=== PATIENT | female | born 1980 | race Caucasian/White ===

== ENCOUNTER 2018-08-07 13:22 | Emergency (ER) | payer OTHER ==
[2018-08-07] MEDS: IBUPROFEN 800 MG TAB PO (14:00)
[2018-08-07] MEDS: ONDANSETRON 4 MG ORAL DISINTEGRATING TAB (Q0162 PER 1MG) PO (14:03)
[2018-08-07 14:50] LABS: BILIRUBIN, URINE MANUAL OBSCURED (NEGATIVE); BLOOD URINE MANUAL RFX POSITIVE (NEGATIVE); GLUCOSE, URINE (UA) MANUAL OBSCURED mg/dL (NEGATIVE); KETONE, URINE MANUAL OBSCURED mg/dL (NEGATIVE); MICROSCOPIC INDICATED? RFX YES (NO); NITRITE, URINE MANUAL RFX OBSCURED (NEGATIVE); PROTEIN, URINE MANUAL REFLEX OBSCURED mg/dL (NEGATIVE); SP GRAVITY,URINE MANUAL REFLEX > 1.035 (1.002-1.035); UROBILINOGEN, URINE MANUAL OBSCURED mg/dl (NORMAL)
[2018-08-07 14:56] LABS: BACTERIA, URINE SMALL AMOUNT; HYALINE CAST, URINE NONE SEEN /lpf (0-1); MICROSCOPIC EXAM UNSPUN; RBC, URINE TNTC /hpf (0-3); SQUAMOUS EPITHELIAL CELL URINE MOD AMOUNT /hpf (SMALL AMT)
== END 2018-08-07 17:41 | disposition home or self-care (01) ==
LOC: M ED 13:22
DX: N94.6 Dysmenorrhea, unspecified (principal); D25.9 Leiomyoma of uterus, unspecified; E28.2 Polycystic ovarian syndrome; J45.909 Unspecified asthma, uncomplicated
CPT/HCPCS: Q0162

== ENCOUNTER 2019-07-12 19:38 | Emergency (ER) | payer OTHER ==
[~2019-07-12] VITALS: Ht 170.2 cm; Wt 61.4 kg
[2019-07-12 19:38] VITALS: BP 138/65
[~2019-07-12 19:38] MED LIST: IBUP80TA PO; VENTAER INH
[2019-07-12] MEDS ORDERED: IBUPROFEN 600 MG TAB PO ONE (20:00)
[2019-07-12] MEDS ORDERED: IBUP-1022 PO (20:17)
--- NOTE | 2019-07-13 08:27 | REP ---
Left tibia-fibula four views : There is no fracture or dislocation. Mineralization and joint spaces are normal. There are no calcifications or foreign bodies. Impression: Negative left tibia-fibula . Electronically Signed by Chip Gracia MD 07/13/2019 08:19 A
== END 2019-07-12 20:32 | disposition home or self-care (01) ==
LOC: M ED 19:38
DX: S80.11XA Contusion of right lower leg, initial encounter (principal); S80.12XA Contusion of left lower leg, initial encounter; V43.62XA Car passenger injured in collision with other type car in traffic accident, initial encounter; Y92.410 Unspecified street and highway as the place of occurrence of the external cause; F17.200 Nicotine dependence, unspecified, uncomplicated

== ENCOUNTER 2019-09-04 10:12 | Emergency (ER) | payer OTHER ==
[~2019-09-04] VITALS: Ht 170.2 cm; Wt 59.5 kg
[~2019-09-04 10:12] MED LIST changes: +IBUP-1022 PO
[2019-09-04] MEDS ORDERED: BREO1INH (10:20)
[2019-09-04] MEDS ORDERED: IPRATROPIUM 0.5MG/ALBUTEROL 2.5MG INH SOL UD 3ML (DUONEB)(J7620) NEB STA (11:16)
[2019-09-04] MEDS ORDERED: methylPREDNISolone INJ 125 MG/2 ML VIAL (J2930) IV ONE (11:30)
[2019-09-04 11:49] LABS: BASO # 0.1 10^3/uL (0.0-0.2); BASO % 0.4 % (0.0-1.0); EOS # 0.3 10^3/uL (0.0-0.5); EOS % 2.2 % (0.0-3.0); HEMATOCRIT 41.8 % (36.0-47.0); HEMOGLOBIN 14.2 g/dl (12.0-15.5); LYMPH # 1.7 10^3/uL (1.5-5.0); LYMPH % 12.6 % (24.0-44.0); MEAN CORPUSCULAR VOLUME 94.1 fl (80.0-96.0); MONO % 7.3 % (0.0-5.0); NEUTROPHILS # 10.3 10^3/uL (1.5-8.5); NEUTROPHILS % 77.1 % (36.0-66.0); PLATELET COUNT, AUTOMATED 284 10^3/uL (150-450); RED BLOOD COUNT 4.44 10^6/uL (4.00-5.40); WHITE BLOOD COUNT 13.3 10^3/uL (4.0-10.0)
[2019-09-04 12:21] LABS: BLOOD UREA NITROGEN 13 MG/DL (7-18); CALCIUM LEVEL 9.3 MG/DL (8.5-10.1); CARBON DIOXIDE LEVEL 23 MEQ/L (21-32); CHLORIDE LEVEL 108 MEQ/L (98-107); CK-MB VALUE MASS 1.3 NG/ML (<3.6); CPK CREATINE PHOSPHOKINASE 97 U/L (26-192); CREATININE FOR GFR 0.74 MG/DL (0.55-1.30); GLOMERULAR FILTRATION RATE > 60.0 (>60); GLUCOSE, FASTING 90 MG/DL (70-100); MB/CK RELATIVE INDEX 1.34 (< OR =4); SODIUM LEVEL 138 MEQ/L (136-145); TROPONIN I < 0.02 NG/ML (< 0.10)
[2019-09-04] MEDS ORDERED: IPRATROPIUM 0.5MG/ALBUTEROL 2.5MG INH SOL UD 3ML (DUONEB)(J7620) NEB ONE (13:30)
[2019-09-04] MEDS ORDERED: VENTAER INH (13:44)
[2019-09-04] MEDS ORDERED: BREO1INH PO (13:44)
[2019-09-04] MEDS ORDERED: PRED20TA PO (13:51)
[2019-09-04] MEDS ORDERED: AZIT-12 PO (13:51)
[2019-09-04 14:04] VITALS: BP 112/58
--- NOTE | 2019-09-05 14:40 | ECGEPIP ---
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
--- NOTE | 2019-09-16 09:37 | REP ---
Chest x-ray: Two views. Repeat dictation. History: Dyspnea and cough. Preliminary report is provided at the time of examination by Dr. Silva. Comparison chest x-ray June 29, 2013. Findings: The lungs are hyperinflated but free of infiltrate. Pleural angles are sharp. Heart size is normal. Pulmonary vasculature is not increased. Nipple silhouettes project over the lung cabezas bilaterally unchanged. No bony abnormality. Impression: Mild hyperinflation. Otherwise no acute disease. Electronically Signed by Cornelio Richardson MD 09/16/2019 01:07 P
== END 2019-09-04 14:23 | disposition home or self-care (01) ==
LOC: M ED 10:12
DX: J45.998 Other asthma (principal); B34.9 Viral infection, unspecified; Z79.899 Other long term (current) drug therapy; F17.210 Nicotine dependence, cigarettes, uncomplicated
CPT/HCPCS: 71046; 80048; 82550; 82553; 84702; 85025; 85379; 93005; 94640; 94760; 96374; 99284; J2930

== ENCOUNTER 2021-02-06 17:30 | Emergency (ER) | payer OTHER ==
[~2021-02-06] VITALS: Ht 170.2 cm; Wt 59.5 kg
[~2021-02-06 17:30] MED LIST changes: +AZIT-12 PO; +BREO1INH; +BREO1INH PO; +PRED20TA PO
[2021-02-06] MEDS ORDERED: predniSONE 20 MG TAB PO ONE (18:15)
[2021-02-06] MEDS ORDERED: COMBIVENT RESPIMAT 100-20MCG INHALER 4GM INH ONE (18:15)
[2021-02-06] MEDS: ALBUTEROL SULFATE 2.5 MG/0.5 ML INH NEB SOLN INH PRN ×2 (19:46→19:48)
--- NOTE | 2021-02-06 19:51 | REP ---
INDICATION: sob/wheezing COMPARISON: 09/04/2019 TECHNIQUE: PA and lateral. FINDINGS: The mediastinum and cardiac silhouette are normal. The lung cabezas are clear and without acute consolidation, effusion, or pneumothorax. The skeletal structures are intact and normal. IMPRESSION: No acute cardiopulmonary process. <Electronically signed by Hill Silva > 02/06/21 1948
[2021-02-06 20:30] VITALS: BP 112/68
[2021-02-06] MEDS ORDERED: PRED20TA PO (20:50)
[2021-02-06] MEDS ORDERED: ALBU83IN NEB (20:50)
== END 2021-02-06 21:06 | disposition home or self-care (01) ==
LOC: M ED 17:30
DX: J45.901 Unspecified asthma with (acute) exacerbation (principal); F17.210 Nicotine dependence, cigarettes, uncomplicated; Z79.51 Long term (current) use of inhaled steroids
CPT/HCPCS: 71046; 99283; J7512

== ENCOUNTER 2021-07-25 03:09 | Inpatient (IN) | payer OTHER ==
[~2021-07-25 03:09] MED LIST changes: +ALBU83IN NEB
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
[2021-07-25] MEDS ORDERED: IPRATROPIUM 0.5MG/ALBUTEROL 2.5MG INH SOL UD 3ML (DUONEB) NEB ONE ×2 (03:15→03:30)
[2021-07-25] MEDS ORDERED: IPRATROPIUM 0.5MG/ALBUTEROL 2.5MG INH SOL UD 3ML (DUONEB) As Ordered ONE (03:16)
[2021-07-25] MEDS ORDERED: MAGNESIUM SULFATE 1GM/100ML D5W BAG (10MG/ML) As Ordered ONE (03:20)
[2021-07-25] MEDS ORDERED: ALBUTEROL SULFATE 2.5 MG/0.5 ML INH NEB SOLN NEB ONE (03:30)
[2021-07-25] MEDS ORDERED: ALBUTEROL SULFATE 2.5 MG/0.5 ML INH NEB SOLN NEB SCH (03:30)
[2021-07-25] MEDS ORDERED: MAG SULF 1GM/100ML (MAG RUN) 1 GM in IV 1 EA IV ONE ×2 (03:45→04:45)
[2021-07-25 03:56] LABS: ABG HCO3 14.8 MEQ/L (22.0-26.0); ABG O2 SATURATION 98.6 % (95.0-99.0); ABG PARTIAL PRESSURE O2 165.1 mmHg (75.0-100.0); ABG STANDARD HCO3 12.1 MEQ/L (22.0-26.0); ABG TOTAL CO2 16.6 MEQ/L (22.0-29.0)
[2021-07-25 03:59] LABS: ABG pH (ARTERIAL) 7.007 UNITS (7.350-7.450)
[2021-07-25 04:00] LABS: ABG PARTIAL PRESSURE CO2 60.3 mmHg (35.0-45.0)
[2021-07-25 04:24] LABS: BLOOD UREA NITROGEN 17 MG/DL (7-18); CALCIUM LEVEL 8.8 MG/DL (8.5-10.1); CARBON DIOXIDE LEVEL 20 MEQ/L (21-32); CHLORIDE LEVEL 110 MEQ/L (98-107); CREATININE FOR GFR 1.04 MG/DL (0.55-1.30); GLOMERULAR FILTRATION RATE > 60.0 (>60); GLUCOSE, FASTING 309 MG/DL (70-100); MAGNESIUM LEVEL 3.7 MG/DL (1.8-2.4); POTASSIUM SERUM 4.6 MEQ/L (3.5-5.1); SODIUM LEVEL 144 MEQ/L (136-145)
[2021-07-25 04:25] LABS: BASO # 0.1 10^3/uL (0.0-0.2); BASO % 0.7 % (0.0-1.0); EOS # 0.6 10^3/uL (0.0-0.5); EOS % 3.9 % (0.0-3.0); HEMATOCRIT 46.9 % (36.0-47.0); HEMOGLOBIN 14.4 g/dl (12.0-15.5); LYMPH # 6.2 10^3/uL (1.5-5.0); LYMPH % 39.8 % (24.0-44.0); MEAN CORPUSCULAR HEMOGLOBIN 31.6 pg (27.0-33.0); MEAN CORPUSCULAR HGB CONC 30.7 g/dl (32.0-36.5); MEAN CORPUSCULAR VOLUME 102.9 fl (80.0-96.0); MONO % 6.6 % (2.0-8.0); NEUTROPHILS # 7.5 10^3/uL (1.5-8.5); NEUTROPHILS % 48.4 % (36.0-66.0); PLATELET COUNT, AUTOMATED 287 10^3/uL (150-450); RED BLOOD COUNT 4.56 10^6/uL (4.00-5.40); WHITE BLOOD COUNT 15.6 10^3/uL (4.0-10.0)
[2021-07-25 04:29] LABS: CK-MB VALUE MASS < 1.0 NG/ML (<3.6); CPK CREATINE PHOSPHOKINASE 97 U/L (26-192); MB/CK RELATIVE INDEX 1.03 (< OR =4); TROPONIN I < 0.02 NG/ML (< 0.10)
[2021-07-25 05:08] LABS: RSV AMPLIFICATION NEGATIVE (NEGATIVE)
[2021-07-25] MEDS ORDERED: NS 1,000 ML IV ONE ×3 (05:15→15:45)
[2021-07-25 05:44] LABS: ABG BASE EXCESS -6.3 (-2.0-2.0); ABG HCO3 19.8 MEQ/L (22.0-26.0); ABG O2 SATURATION 99.2 % (95.0-99.0); ABG PARTIAL PRESSURE CO2 41.4 mmHg (35.0-45.0); ABG PARTIAL PRESSURE O2 236.5 mmHg (75.0-100.0); ABG STANDARD HCO3 19.4 MEQ/L (22.0-26.0); ABG pH (ARTERIAL) 7.297 UNITS (7.350-7.450)
[2021-07-25] MEDS ORDERED: AZITHROMYCIN INJ 500 MG, VIAL MATE ADAPTER 1 EACH in NS 250 ML IV ONE (06:05)
[2021-07-25] MEDS ORDERED: cefTRIAXone SOD 1 GM in D5W MINI-BAG PLUS 50 ML IV ONE (06:05)
--- NOTE | 2021-07-25 06:38 | REPVR ---
PROCEDURE INFORMATION: Exam: XR Chest Exam date and time: 07/25/2021 5:42 AM Age: 41 years old Clinical indication: Shortness of breath; Additional info: Asthma exacerbation TECHNIQUE: Imaging protocol: XR of the chest. Views: 1 view. COMPARISON: CR Chest, 2 view PA, Lat 02/06/2021 7:33 PM FINDINGS: Lungs: Coarsening or underlying areas of interstitial thickening most suggested in the lower lungs. Pleural spaces: Unremarkable. No pleural effusion. No pneumothorax. Heart/Mediastinum: Unremarkable. No cardiomegaly. Bones/joints: Area of sclerosis proximal left humerus diametaphysis. Soft tissues: Summation of densities or nodular opacity right mid chest measuring approximately 1.4 cm versus external density. Other findings: Multiple overlapping external structures. IMPRESSION: 1. Interstitial coarsening/thickening most suggested in the lower lungs. 2. External density versus summation densities or margin of the lower right scapula overlies the right mid chest. Further follow-up chest is recommended. 3. Limitation by multiple overlapping external structures partially obscuring the chest. Electronically signed by: Anjali Hollins On 07/25/2021 06:38:24 AM
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
[2021-07-25] MEDS ORDERED: BUDESONIDE 0.5 MG/2 ML INHALATION SUSPENSION INH SCH (08:00)
[2021-07-25] MEDS ORDERED: ALB2.5NEB INH (08:05)
[2021-07-25] MEDS ORDERED: ADV250INH INH (08:05)
[2021-07-25] MEDS ORDERED: HOME MED LIST COMPLETE! XX SCH (08:10)
[2021-07-25] MEDS: ALBUTEROL SULFATE 2.5 MG/0.5 ML INH NEB SOLN NEB SCH ×4 (08:11→20:00)
[2021-07-25 08:24] LABS: ABG BASE EXCESS -6.7 (-2.0-2.0); ABG HCO3 18.1 MEQ/L (22.0-26.0); ABG O2 SATURATION 99.6 % (95.0-99.0); ABG PARTIAL PRESSURE CO2 34.1 mmHg (35.0-45.0); ABG PARTIAL PRESSURE O2 314.3 mmHg (75.0-100.0); ABG STANDARD HCO3 19.1 MEQ/L (22.0-26.0); ABG TOTAL CO2 19.2 MEQ/L (22.0-29.0); ABG pH (ARTERIAL) 7.343 UNITS (7.350-7.450)
[2021-07-25] MEDS: NS 1,000 ML IV SCH ×2 (09:56→22:50)
[2021-07-25] MEDS: ENOXAPARIN 40MG/0.4ML SYRINGE (J1650 PER 10MG) SC SCH (10:00)
[2021-07-25 10:33] LABS: HEMOGLOBIN A1c 5.4 %
[2021-07-25] MEDS: methylPREDNISolone 40MG 1ML VIAL IV SCH ×2 (11:53→17:59)
[2021-07-25 14:30] LABS: ABG BASE EXCESS -8.4 (-2.0-2.0); ABG HCO3 15.2 MEQ/L (22.0-26.0); ABG O2 SATURATION 91.2 % (95.0-99.0); ABG PARTIAL PRESSURE O2 60.6 mmHg (75.0-100.0); ABG STANDARD HCO3 17.6 MEQ/L (22.0-26.0); ABG TOTAL CO2 16.1 MEQ/L (22.0-29.0); ABG pH (ARTERIAL) 7.369 UNITS (7.350-7.450)
[2021-07-25] MEDS: BUDESONIDE 0.5 MG/2 ML INHALATION SUSPENSION INH SCH ×2 (15:41→20:00)
--- NOTE | 2021-07-25 16:11 | HPEPDOC ---
General Date of Admission Jul 25, 2021 at 07:37 Date of Service: Jul 25, 2021 Chief Complaint The patient is a 41-year-old female admitted with a reason for visit of Asthma Exacerbation. Source: Patient, RN/MD History of Present Illness 41-year-old female with past medical history of asthma, smoker, COPD has been sick for about a week. She initially started with nasal congestion thought it was her allergies about 4 days ago she started feeling short of breath with some cough she started using her inhalers frequently but she ran out of her albuterol inhaler, she did not have any prednisone at home, and last night she was severely short of breath so called EMS. EMS found to be saturating at 70s she was put on 6 L nasal cannula and brought to the ED on presentation to the ED she was saturating 90 in mid 80s. She was tripoding, could talk only 1 or 2 words, there was use of all accessory muscles. ABG showed pH of 7.007 PCO2 of 60 PO2 165. Chest x-ray showed coarsening of the lower lung cabezas and Summation of densities or nodular opacity right mid chest measuring approximately 1.4 cm versus external density. She was immediately started on BiPAP. 2 hours later blood gas showed improvement. In the ED she was noted to be hypotensive 90s over 50s range so was given several boluses of fluid. during my interview patient was on BiPAP she could not talk very well. She did say that she was feeling better. Still complained of shortness of breath but was better than when she came in. Complained of some cough not much phlegm production and congestion. She was admitted for acute respiratory failure with hypoxia and hypercarbia due to asthma/COPD exacerbation. Home Medications Scheduled Salmeterol/Fluticasone (Advair 250-50 Diskus) 1 Each Blst.w.dev, 1 PUFF INH BID, (Reported) Scheduled PRN Albuterol Sulfate (Ventolin Hfa) 108 Mcg/Act Aer, 2 PUFFS INH QIDP PRN for SHORTNESS OF BREATH, (Reported) Albuterol Sulfate (Albuterol Sulfate) 2.5 Mg/0.5 Ml Vial.neb, 2.5 MG INH Q4H PRN for SOB/WHEEZING, (Reported) Allergies Coded Allergies: ENVIRONMENTAL (Verified Allergy, Unknown, 06/24/08) No Known Drug Allergies (Verified Allergy, Unknown, 07/25/21) Past Medical History Medical History Asthma, Allergies, COPD Surgical History Tubal ligation Family History Significant Family History: Asthma (Brother), COPD (Father) Social History * Smoker: current smoker Alcohol: occationally Drugs: denies A-FIB/CHADSVASC A-FIB History Current/History of A-Fib/PAF?: No Review of Systems Constitutional: Denies: Chills, Fever, Night Sweats Eyes: Denies: Pain, Vision change ENT: Reports: Sinus Congestion; Denies: Head Aches, Ear Pain, Dysphagia Skin: Denies: Rash, Lesions, Breakdown Pulmonary: Reports: Dyspnea, Cough Cardiovascular: Denies: Chest Pain, Palpitations, Orthopnea Gastrointestinal: Denies: Nausea, Vomiting, Abdominal Pain, Diarrhea Genitourinary: Denies: Dysuria, Frequency, Incontinence, Retention Hematologic: Denies: Bruising, Bleeding Excessively Musculoskeletal: Reports: Back Pain; Denies: Neck Pain, Joint Pain, Muscle Pain, Spasms Physical Examination General Exam: Positive: Alert, Cooperative, Mild Distress Eye Exam: Positive: PERRLA, Conjunctiva & lids normal, EOMI; Negative: Sclera icteric ENT Exam: Positive: Atraumatic, Mucous membr. moist/pink, Pharynx Normal Neck Exam: Positive: Supple; Negative: JVD, thyromegaly Chest Exam: Positive: Rhonchi, Wheezing Heart Exam: Positive: Rate Normal, Regular Rhythm, Normal S1, Normal S2; Negative: Murmurs, Rubs Telemetry: Positive: Sinus, Tachycardia Abdomen Exam: Positive: Normal bowel sounds, Soft; Negative: Tenderness Extremity Exam: Negative: Clubbing, Cyanosis, Edema Skin Exam: Positive: Nl turgor and temperature; Negative: Breakdown, Lesion Psych Exam: Positive: Memory Intact, Oriented x 3 Vital Signs Vital Signs Date Time Temp Pulse Resp B/P (MAP) Pulse Ox O2 Delivery O2 Flow Rate FiO2 07/25/21 10:12 98/57 (71) 07/25/21 10:00 100 100 07/25/21 08:15 60 07/25/21 05:00 95.9 24 NIPPV (BIPAP/CPAP) 07/25/21 03:54 15.0 Laboratory Data Labs 24H Laboratory Tests 2 07/25/21 03:44: Immature Granulocyte % (Auto) 0.6, Neutrophils (%) (Auto) 48.4, Lymphocytes (%) (Auto) 39.8, Monocytes (%) (Auto) 6.6, Eosinophils (%) (Auto) 3.9H, Basophils (%) (Auto) 0.7, Neutrophils # (Auto) 7.5, Lymphocytes # (Auto) 6.2H, Monocytes # (Auto) 1.0H, Eosinophils # (Auto) 0.6H, Basophils # (Auto) 0.1, Nucleated Red Blood Cells % (auto) 0.0, Anion Gap 14, Glomerular Filtration Rate > 60.0, Calcium Level 8.8, Magnesium Level 3.7H, Total Creatine Kinase 97, Creatine Kinase MB < 1.0, Creatine Kinase MB Relative Index 1.03, Troponin I < 0.02 07/25/21 03:49: Blood Gas Bicarbonate Standard 12.1L, Arterial Blood pH 7.007*L, Arterial Blood Partial Pressure CO2 60.3*H, Arterial Blood Partial Pressure O2 165.1H, Arterial Blood Total CO2 16.6L, Arterial Blood HCO3 14.8L, Arterial Blood Base Excess - 17.0L, Arterial Blood Oxygen Saturation 98.6 07/25/21 03:54: Estimated Mean Plasma Glucose 108, Hemoglobin A1c 5.4 07/25/21 04:01: Coronavirus (COVID-19)(PCR) NEGATIVE, Influenza Type A (RT-PCR) NEGATIVE, Influenza Type B (RT-PCR) NEGATIVE, Respiratory Syncytial Virus (PCR) NEGATIVE 07/25/21 05:30: Blood Gas Bicarbonate Standard 19.4L, Arterial Blood pH 7.297L, Arterial Blood Partial Pressure CO2 41.4, Arterial Blood Partial Pressure O2 236.5H, Arterial Blood Total CO2 21.0L, Arterial Blood HCO3 19.8L, Arterial Blood Base Excess - 6.3L, Arterial Blood Oxygen Saturation 99.2H 07/25/21 06:26: Lactic Acid Level 2.9*H 07/25/21 08:06: Blood Gas Bicarbonate Standard 19.1L, Arterial Blood pH 7.343L, Arterial Blood Partial Pressure CO2 34.1L, Arterial Blood Partial Pressure O2 314.3H, Arterial Blood Total CO2 19.2L, Arterial Blood HCO3 18.1L, Arterial Blood Base Excess - 6.7L, Arterial Blood Oxygen Saturation 99.6H 07/25/21 10:47: Lactic Acid Followup at 4 Hours 2.5*H CBC/BMP Laboratory Tests 07/25/21 03:44 Microbiology Microbiology 07/25/21 Blood Culture, Received Pending 07/25/21 Blood Culture, Received Pending Assessment/Plan 41-year-old female with past medical history of asthma has been sick for about a week. She initially started with nasal congestion thought it was her allergies about 4 days ago she started feeling short of breath with some cough she started using her inhalers frequently but she ran out of her albuterol inhaler, she did not have any prednisone at home, and last night she was severely short of breath so called EMS. EMS found to be saturating at 70s she was put on 6 L nasal cannula and brought to the ED on presentation to the ED she was saturating 90 in mid 80s. She was tripoding, could talk only 1 or 2 words, there was use of all accessory muscles. ABG showed pH of 7.007 PCO2 of 60 PO2 165. She was immediately started on BiPAP 2 hours later blood gas showed improvement. She was admitted for acute respiratory failure with hypoxia and hypercarbia due to asthma exacerbation. Acute respiratory failure with hypoxia and hypercarbia Improved blood gas after BiPAP Continue with BiPAP with breaks for meals. Asthma/COPD exacerbation Continue on albuterol, budesonide, methylprednisone Will give ceftriaxone and azithromycin in view of SIRS with abnormal chest x-ray We will get a CT chest Hypotension Possibly due to acidosis However with elevated WBC, tachycardia, elevated lactate High possibility of underlying sepsis Cultures have been sent Patient has been started on ceftriaxone and azithromycin Patient got 2 boluses of fluids we will continue with IV fluid. Lactic acidosis This is likely due to increased work of breathing Plan / VTE VTE Prophylaxis Ordered?: Yes Dorina Pantoja MD Jul 25, 2021 13:22
--- NOTE | 2021-07-25 16:30 | REP ---
INDICATION: abnormal CXR with acute resp failure and hypotension COMPARISON: None. TECHNIQUE: Standard helical technique without intravenous contrast. FINDINGS: There is no evidence of mediastinal or hilar adenopathy. There are no pleural or pericardial effusions. The imaged upper abdomen is within normal limits. Evaluation of the lung cabezas shows biapical pleuroparenchymal scarring. Scattered bibasilar ground-glass opacities are identified. There is a 6 mm sized pleural base nodule in the right lower lobe. There is cylindrical bronchiectasis. There is right basilar posterior pleural thickening. IMPRESSION: 1. Bibasilar ground-glass opacities early fibrotic changes and or early pneumonia. 2. Cylindrical bronchiectasis. 3. Right lower lung field pleural thickening with a pleural based 6 mm size nodule. This represents a category 3 nodule for which a six-month follow-up chest CT is recommended. 4. Biapical pleuroparenchymal scarring which should also be followed in 6 months. 5. Other findings as described above. <Electronically signed by Matt Wilde > 07/25/21 2000
[2021-07-25 18:27] LABS: ABG BASE EXCESS -8.4 (-2.0-2.0); ABG HCO3 15.5 MEQ/L (22.0-26.0); ABG O2 SATURATION 96.9 % (95.0-99.0); ABG PARTIAL PRESSURE CO2 27.7 mmHg (35.0-45.0); ABG PARTIAL PRESSURE O2 87.1 mmHg (75.0-100.0); ABG STANDARD HCO3 17.8 MEQ/L (22.0-26.0); ABG TOTAL CO2 16.3 MEQ/L (22.0-29.0); ABG pH (ARTERIAL) 7.365 UNITS (7.350-7.450)
--- NOTE | 2021-07-25 19:33 | ECGEPIP ---
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
[2021-07-25] MEDS: guaiFENesin ER 600 MG TAB PO SCH (22:50)
[2021-07-25 23:03] VITALS: BP 104/75
[2021-07-26] MEDS: methylPREDNISolone 40MG 1ML VIAL IV SCH ×2 (00:43→05:52)
[2021-07-26] MEDS: ALBUTEROL SULFATE 2.5 MG/0.5 ML INH NEB SOLN NEB SCH ×5 (04:36→15:45)
[2021-07-26] MEDS ORDERED: cefTRIAXone SOD 1 GM in D5W MINI-BAG PLUS 50 ML IV SCH (06:00)
[2021-07-26 06:14] LABS: ABG BASE EXCESS -3.6 (-2.0-2.0); ABG HCO3 19.9 MEQ/L (22.0-26.0); ABG O2 SATURATION 97.1 % (95.0-99.0); ABG PARTIAL PRESSURE CO2 31.3 mmHg (35.0-45.0); ABG PARTIAL PRESSURE O2 89.3 mmHg (75.0-100.0); ABG STANDARD HCO3 21.5 MEQ/L (22.0-26.0); ABG TOTAL CO2 20.9 MEQ/L (22.0-29.0); ABG pH (ARTERIAL) 7.422 UNITS (7.350-7.450)
[2021-07-26 06:16] VITALS: BP 102/55
[2021-07-26 06:37] LABS: BASO % 0.1 % (0.0-1.0); LYMPH # 1.4 10^3/uL (1.5-5.0); LYMPH % 7.5 % (24.0-44.0); MEAN CORPUSCULAR HEMOGLOBIN 31.8 pg (27.0-33.0); MEAN CORPUSCULAR HGB CONC 33.7 g/dl (32.0-36.5); MEAN CORPUSCULAR VOLUME 94.3 fl (80.0-96.0); MONO # 0.9 10^3/uL (0.0-0.8); MONO % 4.9 % (2.0-8.0); NEUTROPHILS # 16.4 10^3/uL (1.5-8.5); PLATELET COUNT, AUTOMATED 232 10^3/uL (150-450); RED BLOOD COUNT 3.71 10^6/uL (4.00-5.40); WHITE BLOOD COUNT 18.9 10^3/uL (4.0-10.0)
[2021-07-26 06:40] LABS: HEMOGLOBIN 11.8 g/dl (12.0-15.5)
[2021-07-26] MEDS ORDERED: AZITHROMYCIN INJ 500 MG, VIAL MATE ADAPTER 1 EACH in NS 250 ML IV SCH (07:00)
[2021-07-26 07:04] LABS: BLOOD UREA NITROGEN 9 MG/DL (7-18); CALCIUM LEVEL 8.2 MG/DL (8.5-10.1); CARBON DIOXIDE LEVEL 21 MEQ/L (21-32); CHLORIDE LEVEL 113 MEQ/L (98-107); CREATININE FOR GFR 0.52 MG/DL (0.55-1.30); GLOMERULAR FILTRATION RATE > 60.0 (>60); GLUCOSE, FASTING 155 MG/DL (70-100); POTASSIUM SERUM 4.6 MEQ/L (3.5-5.1); SODIUM LEVEL 141 MEQ/L (136-145)
[2021-07-26] MEDS: BUDESONIDE 0.5 MG/2 ML INHALATION SUSPENSION INH SCH (07:18)
[2021-07-26] MEDS: guaiFENesin ER 600 MG TAB PO SCH (08:21)
[2021-07-26] MEDS: ENOXAPARIN 40MG/0.4ML SYRINGE (J1650 PER 10MG) SC SCH (08:21)
[2021-07-26] MEDS ORDERED: INFLUENZA QUADRIVALENT PF VACCINE 0.5ML SYRINGE IM ONE (11:00)
[2021-07-26 14:00] VITALS: BP 101/55
[2021-07-26] MEDS ORDERED: PRED20TA PO (15:06)
--- NOTE | 2021-07-26 18:57 | DS.PDOC ---
Discharge Summary General Date of Admission Jul 25, 2021 at 07:37 Date of Discharge 07/26/2021 Attending Physician: NADINE PEGUERO DO Discharge Summary PROCEDURES PERFORMED DURING STAY: None. ADMITTING DIAGNOSES: 1. Acute respiratory failure with hypoxia and hypercarbia. 2. Asthma/COPD exacerbation 3. Hypertension 4. Lactic acidosis DISCHARGE DIAGNOSES: 1. Acute respiratory failure with hypoxia and hypercarbia, resolved. 2. Asthma/COPD exacerbation, improved 3. Hypertension 4. Lactic acidosis, resolved 5. Leukocytosis, most likely secondary to steroid use COMPLICATIONS/CHIEF COMPLAINT: Asthma Exacerbation. HISTORY OF PRESENT ILLNESS: Patient is a 41-year-old female with a past medical history of asthma, smoking, COPD has been sick for about a week. She initially started with nasal congestion but thought it was her allergies. About 4 days ago she started feeling short of breath some cough and started using inhalers more frequently but she ran out of albuterol. She did not have any prednisone at home. She became acutely short of breath and called EMS. EMS found the patient was saturating 70s as per nasal cannula 6 L and brought to the emergency department. On presentation to the emergency department she was saturating in the 90s in the mid 80s. She was tripoding and only talking 1-2 word sentences. She is using all of her accessory muscles. ABG showed a pH of 7.007, PCO2 of 60 and a PO2 of 165. Chest x-ray showed coarsening of the lower lung cab[place] with summation of densities or nodular opacities in my right chest. She was medially started on BiPAP. 2 hours later the blood gas showed improvement. In the emergency department she was hypotensive and was given several boluses of fluid. During the interview with the admitting provider, patient was on BiPAP she cannot really talk very well. She does says she is feeling much better. Still complains shortness of breath but was better with than when she came in. Complained of some cough with no phlegm production with congestion. HOSPITAL COURSE: Patient improved throughout the evening and into the night. Patient was transitioned to p.o. prednisone and did well throughout the day. Patient initially been placed on a full equal diet but this was advanced to a full diet. Patient did not require any oxygen therapy throughout the day and was not short of breath. I went back to evaluate the patient later in the day and the patient stated that she is feeling much better and was ready to go home. The decision was made to discharge the patient home. Patient's procalcitonin was negative and the patient's chest CT showed possible pneumonia. Because the patient's procalcitonin was negative, the decision was made to stop antibiotics. Patient will be sent home with 5 days of p.o. prednisone with advised to return the emergency department if her symptoms worsen. Patient was discharged home on 07/26/2021. DISCHARGE MEDICATIONS: Please see below. ALLERGIES: Please see below. PHYSICAL EXAMINATION ON DISCHARGE: VITAL SIGNS: Please see below. General: Alert and oriented female patient who was sitting in bed when I walked in the room. Patient did not appear to be in any acute distress. HEENT: Normocephalic, atraumatic, moist mucous membranes. Neck: No lymphadenopathy or thyromegaly Cardiac: Regular rate and rhythm, no murmurs, normal S1, normal S2 Pulm: Clear to auscultation bilaterally. No wheezes, rhonchi, rales Abd: Nondistended, nontender to palpation, normal bowel sounds Ext: No edema bilateral lower extremities LABORATORY DATA: Please see below. IMAGING: Chest x-ray performed 07/25/2021 is reported to show interstitial coarsening/thickening most suggested in the lower lungs. External density versus summation densities or margin of the lower right scapula overlies the mid right chest. Further follow-up chest CT is recommended. Limitations by multiple overlapping external structures partially obstructing the chest. CT of the chest performed without contrast on 07/25/2021 was reported to show bibasilar groundglass opacities early fibrotic changes and/or early pneumonia. Cylindrical bronchiectasis. Right lower lung field pleural thickening with a pleural-based 6 mm nodule. This represents a category 3 nodule for which a 6- month follow-up CT of the chest is recommended. Biapical pleural-parenchymal scarring which should also be followed in 6 months. PROGNOSIS: Good ACTIVITY: As tolerated. DIET: Regular DISCHARGE PLAN: Discharge home DISPOSITION: 01 Home, Self-Care. DISCHARGE INSTRUCTIONS: 1. Follow-up with primary care provider within 5 to 7 days of discharge. 2. Take prednisone 40 mg daily for the next 5 days 3. Return to the emergency department symptoms worsen ITEMS TO FOLLOWUP ON ON OUTPATIENT: 1. 6-month follow-up CT scan for 6 mm nodule as described above in imaging. DISCHARGE CONDITION: Stable. TIME SPENT ON DISCHARGE: 35 minutes. Vital Signs/I&Os Vital Signs Date Time Temp Pulse Resp B/P (MAP) Pulse Ox O2 Delivery O2 Flow Rate FiO2 07/26/21 14:00 99.1 85 20 101/55 (70) 95 Room Air 07/25/21 13:12 2.0 07/25/21 08:15 60 I&O- Last 24 Hours up to 6 AM 07/26/21 06:00 Intake Total 3120 ml Output Total 0 ml Balance 3120 ml Laboratory Data Labs 24H Laboratory Tests 2 07/26/21 05:55: Blood Gas Bicarbonate Standard 21.5L, Arterial Blood pH 7.422, Arterial Blood Partial Pressure CO2 31.3L, Arterial Blood Partial Pressure O2 89.3, Arterial Blood Total CO2 20.9L, Arterial Blood HCO3 19.9L, Arterial Blood Base Excess - 3.6L, Arterial Blood Oxygen Saturation 97.1 07/26/21 06:24: Immature Granulocyte % (Auto) 0.5, Neutrophils (%) (Auto) 87.0H, Lymphocytes (%) (Auto) 7.5L, Monocytes (%) (Auto) 4.9, Eosinophils (%) (Auto) 0.0, Basophils (%) (Auto) 0.1, Neutrophils # (Auto) 16.4H, Lymphocytes # (Auto) 1.4L, Monocytes # (Auto) 0.9H, Eosinophils # (Auto) 0.0, Basophils # (Auto) 0.0, Nucleated Red Blood Cells % (auto) 0.0, Anion Gap 7L, Glomerular Filtration Rate > 60.0, Lactic Acid Level 1.0, Calcium Level 8.2L CBC/BMP Laboratory Tests 07/26/21 06:24 Microbiology Microbiology 07/25/21 Blood Culture - Preliminary, Resulted No growth after 24 hours . All specim... 07/25/21 Blood Culture - Preliminary, Resulted No growth after 24 hours . All specim... Discharge Medications Scheduled Prednisone (Prednisone) 20 Mg Tablet, 40 MG PO DAILY Salmeterol/Fluticasone (Advair 250-50 Diskus) 1 Each Blst.w.dev, 1 PUFF INH BID, (Reported) Scheduled PRN Albuterol Sulfate (Ventolin Hfa) 108 Mcg/Act Aer, 2 PUFFS INH QIDP PRN for S HORTNESS OF BREATH, (Reported) Albuterol Sulfate (Albuterol Sulfate) 2.5 Mg/0.5 Ml Vial.neb, 2.5 MG INH Q4H PRN for SOB/WHEEZING, (Reported) Allergies Coded Allergies: ENVIRONMENTAL (Verified Allergy, Unknown, 06/24/08) No Known Drug Allergies (Verified Allergy, Unknown, 07/25/21) NADINE PEGUERO DO Jul 26, 2021 18:57
[2021-07-27] MEDS ORDERED: predniSONE 20 MG TAB PO SCH (09:00)
== END 2021-07-26 18:30 | disposition home or self-care (01) | DRG 140 ==
LOC: M ED 03:09 → M ED INP 07:37 → M MS5PR 23:04
PROVIDERS: ADMIT Internal Medicine Nephrology; ATTEND Family Medicine
DX: J44.1 Chronic obstructive pulmonary disease with (acute) exacerbation (principal); J96.01 Acute respiratory failure with hypoxia; E87.2 Acidosis; I95.9 Hypotension, unspecified; J45.901 Unspecified asthma with (acute) exacerbation; J96.02 Acute respiratory failure with hypercapnia; F17.200 Nicotine dependence, unspecified, uncomplicated; Z20.822 Contact with and (suspected) exposure to COVID-19; Z79.899 Other long term (current) drug therapy

== ENCOUNTER 2021-09-19 14:32 | Emergency (ER) | payer OTHER ==
[~2021-09-19] VITALS: Ht 170.2 cm; Wt 62.6 kg
[~2021-09-19 14:32] MED LIST changes: +ADV250INH INH; +ALB2.5NEB INH
[2021-09-19] MEDS ORDERED: methylPREDNISolone 125MG 2ML VIAL IV ONE (19:30)
[2021-09-19 20:07] LABS: BASO % 0.3 % (0.0-1.0); EOS # 0.1 10^3/uL (0.0-0.5); EOS % 1.1 % (0.0-3.0); HEMATOCRIT 44.9 % (36.0-47.0); HEMOGLOBIN 15.1 g/dl (12.0-15.5); LYMPH # 1.9 10^3/uL (1.5-5.0); LYMPH % 20.3 % (24.0-44.0); MEAN CORPUSCULAR HEMOGLOBIN 31.5 pg (27.0-33.0); MEAN CORPUSCULAR HGB CONC 33.6 g/dl (32.0-36.5); MEAN CORPUSCULAR VOLUME 93.7 fl (80.0-96.0); MONO # 0.9 10^3/uL (0.0-0.8); MONO % 9.5 % (2.0-8.0); NEUTROPHILS # 6.5 10^3/uL (1.5-8.5); NEUTROPHILS % 68.6 % (36.0-66.0); PLATELET COUNT, AUTOMATED 273 10^3/uL (150-450); RED BLOOD COUNT 4.79 10^6/uL (4.00-5.40); WHITE BLOOD COUNT 9.5 10^3/uL (4.0-10.0)
[2021-09-19] MEDS: IPRATROPIUM 0.5MG/ALBUTEROL 2.5MG INH SOL UD 3ML (DUONEB) NEB PRN ×2 (20:22→20:40)
[2021-09-19 20:23] LABS: ABG BASE EXCESS -0.2 (-2.0-2.0); ABG HCO3 21.9 MEQ/L (22.0-26.0); ABG O2 SATURATION 97.7 % (95.0-99.0); ABG PARTIAL PRESSURE CO2 29.6 mmHg (35.0-45.0); ABG PARTIAL PRESSURE O2 93.1 mmHg (75.0-100.0); ABG STANDARD HCO3 24.3 MEQ/L (22.0-26.0); ABG TOTAL CO2 22.9 MEQ/L (22.0-29.0); ABG pH (ARTERIAL) 7.488 UNITS (7.350-7.450)
[2021-09-19 20:34] LABS: BLOOD UREA NITROGEN 13 MG/DL (7-18); CALCIUM LEVEL 8.9 MG/DL (8.5-10.1); CARBON DIOXIDE LEVEL 25 MEQ/L (21-32); CHLORIDE LEVEL 107 MEQ/L (98-107); CK-MB VALUE MASS 1.3 NG/ML (<3.6); CREATININE FOR GFR 0.72 MG/DL (0.55-1.30); GLOMERULAR FILTRATION RATE > 60.0 (>60); GLUCOSE, FASTING 97 MG/DL (70-100); MB/CK RELATIVE INDEX 1.81 (< OR =4); POTASSIUM SERUM 4.2 MEQ/L (3.5-5.1); SODIUM LEVEL 139 MEQ/L (136-145)
[2021-09-19] MEDS ORDERED: PRED20TA PO (21:09)
[2021-09-19 22:05] VITALS: BP 135/60
== END 2021-09-19 22:08 | disposition home or self-care (01) ==
LOC: M ED 14:32
DX: U07.1 COVID-19 (principal); J44.9 Chronic obstructive pulmonary disease, unspecified; R06.02 Shortness of breath
CPT/HCPCS: 36600; 71046; 80048; 82550; 82553; 82803; 85025; 85379; 93005; 94640; 96374; 99284; J2930

== ENCOUNTER → 2022-06-12 | Outpatient (CLI) | payer OTHER ==
[~2022-06-12] MED LIST changes: +ALBU2.5V10 NEB; -ALBU83IN NEB
== END ==
LOC: M RAD 18:38
PROVIDERS: ATTEND Physician Assistant Medical
DX: R06.02 Shortness of breath (principal); R05.9 Cough, unspecified

== ENCOUNTER 2023-07-08 19:16 | Emergency (ER) | payer OTHER ==
[~2023-07-08] VITALS: Ht 170.2 cm; Wt 60.6 kg
[2023-07-08] MEDS ORDERED: methylPREDNISolone 125MG 2ML VIAL IV ONE (19:50)
[2023-07-08] MEDS ORDERED: IPRATROPIUM 0.5MG/ALBUTEROL 2.5MG INH SOL UD 3ML (DUONEB) NEB ONE ×3 (19:50→22:35)
[2023-07-08] MEDS ORDERED: ALBUTEROL SULFATE 2.5MG/0.5ML INH NEB SOLN NEB ONE (19:50)
[2023-07-08] MEDS: MAG SULF 1GM/100ML (MAG RUN) 1 GM in IV 1 EA IV SCH ×2 (20:05→20:23)
[2023-07-08 20:10] LABS: BASO % 0.5 % (0.0-1.0); EOS # 0.3 10^3/uL (0.0-0.5); HEMATOCRIT 44.4 % (36.0-47.0); HEMOGLOBIN 15.1 g/dl (12.0-15.5); LYMPH # 2.2 10^3/uL (1.5-5.0); LYMPH % 26.7 % (24.0-44.0); MEAN CORPUSCULAR HEMOGLOBIN 32.2 pg (27.0-33.0); MEAN CORPUSCULAR VOLUME 94.7 fl (80.0-96.0); MONO # 0.7 10^3/uL (0.0-0.8); MONO % 8.4 % (2.0-8.0); NEUTROPHILS # 4.9 10^3/uL (1.5-8.5); NEUTROPHILS % 60.3 % (36.0-66.0); PLATELET COUNT, AUTOMATED 267 10^3/uL (150-450); RED BLOOD COUNT 4.69 10^6/uL (4.00-5.40); WHITE BLOOD COUNT 8.2 10^3/uL (4.0-10.0)
[2023-07-08 20:40] LABS: ALBUMIN 3.7 G/DL (3.2-5.2); ALKALINE PHOSPHATASE 61 U/L (46-116); ALT/SGPT 10 U/L (7.0-40); AST/SGOT 16 U/L (<34); BILIRUBIN,DIRECT < 0.1 MG/DL (<0.4); BILIRUBIN,TOTAL 0.2 MG/DL (0.3-1.2); BLOOD UREA NITROGEN 9 MG/DL (9-23); CALCIUM LEVEL 9.5 MG/DL (8.5-10.1); CARBON DIOXIDE LEVEL 25 MMOL/L (20-31); CHLORIDE LEVEL 107 MMOL/L (98-107); CREATININE FOR GFR 0.58 MG/DL (0.55-1.30); GLOMERULAR FILTRATION RATE > 60.0 (>58); GLUCOSE, FASTING 91 MG/DL (60-100); POTASSIUM SERUM 4.1 MMOL/L (3.5-5.1); SODIUM LEVEL 141 MMOL/L (136-145); TOTAL PROTEIN 6.9 G/DL (5.7-8.2)
[2023-07-08 20:43] LABS: THYROXINE (T4) 7.8 UG/DL (4.5-10.9)
[2023-07-08 22:00] VITALS: TEMP 98.3
[2023-07-08] MEDS ORDERED: IPRA0.00 INH (22:38)
[2023-07-08] MEDS ORDERED: PRED10TA2 PO (22:38)
[2023-07-08 22:45] VITALS: BP 119/60; O2SAT 97
== END 2023-07-08 23:03 | disposition home or self-care (01) ==
LOC: M ED 19:16
DX: J45.901 Unspecified asthma with (acute) exacerbation (principal); F17.200 Nicotine dependence, unspecified, uncomplicated
CPT/HCPCS: 71045; 80048; 80076; 83605; 83880; 84436; 84443; 85025; 87040; 87486; 87581; 87633; 87798; 93005; 93041; 94640; 94760; 96365; 96366; 96375; 99285; J2930; J3475